=== PATIENT | female | born 2000 | race African-American/Black ===

== ENCOUNTER 2022-12-10 08:14 | Emergency (ER) | payer MEDICAID ==
[~2022-12-10] VITALS: Ht 165.1 cm; Wt 61.0 kg
[2022-12-10] MEDS ORDERED: ONDANSETRON 4MG ODT PO ONE (08:45)
[2022-12-10] MEDS ORDERED: SODIUM CHLORIDE 0.9% 1,000 ML IV ONE (10:45)
[2022-12-10 13:41] LABS: CLARITY URINE CLEAR (CLEAR); COLOR URINE DARK YELLOW (YELLOW); KETONES URINE 4+ (NEGATIVE); LEUKOCYTE ESTERASE URINE NEGATIVE (NEGATIVE); NITRITE URINE NEGATIVE (NEGATIVE); OCCULT BLOOD URINE NEGATIVE (NEGATIVE); PROTEIN URINE 2+ (NEGATIVE); SPECIFIC GRAVITY URINE 1.041 (1.005-1.030)
[2022-12-10] MEDS ORDERED: ONDANSETRON 4MG ODT PO NR (13:45)
[2022-12-10 14:10] LABS: *AMPHETAMINES SCREEN URINE NEGATIVE (NEGATIVE); *BARBITURATES SCREEN URINE NEGATIVE (NEGATIVE); *BENZODIAZEPINES SCREEN URINE NEGATIVE (NEGATIVE); *COCAINE SCREEN URINE NEGATIVE (NEGATIVE); METHADONE URINE SCREEN NEGATIVE (NEGATIVE); OPIATES URINE SCREEN NEGATIVE (NEGATIVE); PHENCYCLIDINE URINE SCREEN NEGATIVE (NEGATIVE)
[2022-12-10 14:14] LABS: CANNABINOID URINE SCREEN PRESUMTIVE POSITIVE (NEGATIVE)
[2022-12-10 15:07] LABS: HEMATOCRIT. 42.9 % (36.0-48.0); HEMOGLOBIN. 14.5 g/dL (12.0-16.0); MEAN CORPUSCULAR HEMOGLOBIN 30.8 pg (28.0-32.0); MEAN CORPUSCULAR VOLUME 90.9 fL (81.0-99.0); MEAN PLATELET VOLUME 9.2 fl (7.4-10.4); PLATELET 188 x1000/uL (130-400); RED BLOOD CELL COUNT 4.72 mill/uL (4.2-5.4); RED CELL DISTRIBUTION WIDTH 15.2 % (11.6-14.6)
[2022-12-10 15:21] LABS: CHLORIDE 98 mEq/L (98-107)
[2022-12-10] MEDS ORDERED: ONDA4TAB11 PO (15:41)
[2022-12-10 15:47] LABS: B-HCG QUANTITATIVE 6930 mIU/mL (<3)
[2022-12-10 16:21] VITALS: BP 117/77
[2022-12-10 19:20] LABS: PLATELET ESTIMATE NORMAL
== END 2022-12-10 16:22 | disposition home or self-care (01) ==
LOC: ER 08:41
DX: O21.8 Other vomiting complicating pregnancy (principal); O26.891 Other specified pregnancy related conditions, first trimester; R42 Dizziness and giddiness; Z3A.01 Less than 8 weeks gestation of pregnancy
CPT/HCPCS: 36415; 76801; 76817; 80053; 80305; 81003; 81025; 84702; 85025; 86850; 86900; 86901; 96360; 99284; J7030; Q0162; Z7610

== ENCOUNTER 2024-03-18 15:11 | Emergency (ER) | payer MEDICAID ==
[~2024-03-18] VITALS: Ht 167.6 cm; Wt 85.0 kg
[~2024-03-18 15:11] MED LIST: ONDA4TAB11 PO
[2024-03-18 15:38] VITALS: O2SAT 99
[2024-03-18] MEDS ORDERED: IBUP-2029 MT (15:56)
[2024-03-18] MEDS ORDERED: AMOX1TAB16 MT (15:56)
[2024-03-18 16:09] VITALS: BP 133/88; PULSE 80; RESP 18; TEMP 98.1
== END 2024-03-18 16:20 | disposition home or self-care (01) ==
LOC: ER 15:11
DX: K04.7 Periapical abscess without sinus (principal); Z98.890 Other specified postprocedural states
CPT/HCPCS: 99283

== ENCOUNTER 2024-12-31 09:39 | Emergency (ER) | payer MEDICAID ==
[~2024-12-31] VITALS: Ht 162.6 cm; Wt 88.0 kg
[~2024-12-31 09:39] MED LIST changes: +AMOX1TAB16 MT; +IBUP-2029 MT; +ONDA-239 PO; -ONDA4TAB11 PO
[2024-12-31 09:45] VITALS: O2SAT 98
[2024-12-31 10:25] LABS: CLARITY URINE CLOUDY (CLEAR); COLOR URINE YELLOW (YELLOW); GLUCOSE URINE NEGATIVE (NEGATIVE); KETONES URINE 2+ (NEGATIVE); LEUKOCYTE ESTERASE URINE TRACE (NEGATIVE); NITRITE URINE NEGATIVE (NEGATIVE); OCCULT BLOOD URINE NEGATIVE (NEGATIVE); PROTEIN URINE 1+ (NEGATIVE); SPECIFIC GRAVITY URINE 1.033 (1.005-1.030)
[2024-12-31 10:34] LABS: BASOPHILS % 0.6 % (0.0-2.0); EOSINOPHILS % 0.4 % (0.0-5.0); HEMATOCRIT. 34.1 % (36.0-48.0); HEMOGLOBIN. 10.9 g/dL (12.0-16.0); LYMPHOCYTES % 29.7 % (20.0-50.0); MEAN CORPUSCULAR HEMOGLOBIN 28.4 pg (28.0-32.0); MEAN CORPUSCULAR VOLUME 88.9 fL (81.0-99.0); NEUTROPHILS % 58.3 % (40.0-76.0); PLATELET 251 x1000/uL (130-400); RED BLOOD CELL COUNT 3.84 mill/uL (4.2-5.4); WHITE BLOOD COUNT 5.5 x1000/uL (4.5-11.0)
[2024-12-31 10:44] LABS: BACTERIA URINE 2+; SQUAMOUS EPITHELIAL CELL URINE 3+ /lpf (RARE/1+); YEAST URINE NONE SEEN
[2024-12-31] MEDS: ONDANSETRON 4MG ODT PO ONE (10:45)
[2024-12-31 10:49] LABS: CHLORIDE 102 mEq/L (98-107); POTASSIUM 3.6 mEq/L (3.5-5.1); SODIUM 137 mEq/L (136-145)
[2024-12-31 10:50] LABS: CALCIUM 9.5 mg/dL (8.7-10.4); CARBON DIOXIDE 27 mEq/L (21-32)
[2024-12-31 10:55] LABS: CREATININE 0.7 mg/dL (0.6-1.0); GLUCOSE 87 mg/dL (70-105); UREA NITROGEN BLOOD 8 mg/dL (9-23)
[2024-12-31 10:57] LABS: ALANINE AMINOTRANSFERASE 16 IU/L (10-49); ALBUMIN 4.7 g/dL (3.2-4.8); ASPARTATE AMINOTRANSFERASE 24 IU/L (<34); BILIRUBIN DIRECT 0.2 mg/dL (<=3.0); BILIRUBIN TOTAL 0.7 mg/dL (0.1-1.0); PROTEIN TOTAL 8.4 g/dL (6.0-8.3)
[2024-12-31] MEDS ORDERED: ONDA4TAB50 MT (12:01)
[2024-12-31 12:11] VITALS: BP 122/82; PULSE 95; RESP 18; TEMP 36.8; O2SAT 99
== END 2024-12-31 12:12 | disposition home or self-care (01) ==
LOC: ER 09:39
DX: K52.9 Noninfective gastroenteritis and colitis, unspecified (principal); Z79.899 Other long term (current) drug therapy
CPT/HCPCS: 99283; 80076; 80048; 81003; 81025; 83690; 85025; 36415; Q0162

== ENCOUNTER 2025-04-24 07:52 | Emergency (ER) | payer MEDICAID ==
[~2025-04-24] VITALS: Ht 162.6 cm; Wt 81.4 kg
[~2025-04-24 07:52] MED LIST changes: +ONDA4TAB50 MT
[2025-04-24 07:56] VITALS: TEMP 36.9; O2SAT 99
[2025-04-24] MEDS ORDERED: AMOX1TAB16 MT (08:21)
[2025-04-24 08:45] VITALS: BP 123/86; PULSE 78; RESP 16; O2SAT 99
== END 2025-04-24 08:46 | disposition home or self-care (01) ==
LOC: ER 07:52
DX: K08.89 Other specified disorders of teeth and supporting structures (principal); Z98.890 Other specified postprocedural states; Z79.899 Other long term (current) drug therapy
CPT/HCPCS: 99283